=== PATIENT | male | born 1950 | race Caucasian/White ===

== ENCOUNTER 2022-06-29 09:26 | Outpatient (CLI) | payer OTHER, SELFPAY | END 2022-06-29 09:27 | disposition home or self-care (01) | LOC: NFLDREF 07-01 07:38 | PROVIDERS: Visit Provider Emergency Medicine | DX: R73.03 Prediabetes (principal); I10 Essential (primary) hypertension; E78.5 Hyperlipidemia, unspecified; Z12.5 Encounter for screening for malignant neoplasm of prostate | CPT/HCPCS: 80053; 80061; 84153 ==

== ENCOUNTER 2023-08-26 10:11 | Outpatient (CLI) | payer OTHER, SELFPAY | END 2023-08-26 10:12 | disposition home or self-care (01) | LOC: NFLDREF 08-30 17:54 | PROVIDERS: PCP Emergency Medicine; Referring Provider Emergency Medicine; Visit Provider Emergency Medicine | DX: I10 Essential (primary) hypertension (principal); E78.5 Hyperlipidemia, unspecified; E11.9 Type 2 diabetes mellitus without complications; Z12.5 Encounter for screening for malignant neoplasm of prostate | CPT/HCPCS: 80053; 80061; 84443; G0103 ==

== ENCOUNTER 2023-08-27 14:59 | Outpatient (CLI) | payer OTHER, SELFPAY | END 2023-08-27 15:00 | disposition home or self-care (01) | LOC: LKVREF 14:59 | PROVIDERS: PCP Emergency Medicine; Visit Provider Emergency Medicine | DX: E11.65 Type 2 diabetes mellitus with hyperglycemia (principal) | CPT/HCPCS: 82043; 82570 ==

== ENCOUNTER 2023-09-06 07:41 | Outpatient (CLI) | payer OTHER, SELFPAY ==
--- NOTE | 2023-09-06 09:00 | CRLHL7_ITS ---
For Patients: As a result of the Cures Act, medical imaging exams and procedure reports are released immediately into your electronic medical record. You may view this report before your referring provider. If you have questions, please contact your health care provider. INDICATION: Smoking history; low-dose screening chest CT. COMPARISON: None. Technique: Low-dose screening chest CT. FINDINGS: Coronary artery calcifications. Calcifications identified in the aortic valve. No abnormal mediastinal or hilar lymphadenopathy. Normal size cardiac silhouette without any pericardial effusion. A tiny calcified granuloma right lower lobe. No abnormal intra pulmonary nodular densities are identified. Limited CT through the upper abdomen is unremarkable. IMPRESSION: 1. Coronary artery calcifications. 2. Lung rads category 1; low-dose screening chest CT in 12 months suggested. Please note that all CT scans at this facility use dose modulation, iterative reconstruction, and/or weight-based dosing when appropriate to reduce radiation dose to as low as reasonably achievable. Dictated by Abraham Byers MD @ 09/06/2023 1:22:44 PM (Electronically Signed)
== END 2023-09-06 07:42 | disposition home or self-care (01) ==
LOC: RAD 07:41
PROVIDERS: PCP Emergency Medicine; Visit Provider Emergency Medicine
DX: Z12.2 Encounter for screening for malignant neoplasm of respiratory organs (principal); I25.10 Atherosclerotic heart disease of native coronary artery without angina pectoris; F17.210 Nicotine dependence, cigarettes, uncomplicated; I35.0 Nonrheumatic aortic (valve) stenosis
CPT/HCPCS: 71271; 93306

== ENCOUNTER 2023-11-28 08:51 | Outpatient (CLI) | payer OTHER, SELFPAY | END 2023-11-28 08:52 | disposition home or self-care (01) | LOC: LKVREF 08:52 | PROVIDERS: PCP Emergency Medicine; Visit Provider Emergency Medicine | DX: E78.2 Mixed hyperlipidemia (principal) | CPT/HCPCS: 80061 ==

== ENCOUNTER 2024-02-04 08:06 | Outpatient (CLI) | payer OTHER, SELFPAY | END 2024-02-04 08:07 | disposition home or self-care (01) | LOC: LKVREF 08:06 | PROVIDERS: PCP Emergency Medicine; Visit Provider Emergency Medicine | DX: I10 Essential (primary) hypertension (principal) | CPT/HCPCS: 80048 ==

== ENCOUNTER 2024-11-23 10:25 | Outpatient (CLI) | payer OTHER, SELFPAY | END 2024-11-23 10:26 | disposition home or self-care (01) | LOC: LKVREF 10:26 | PROVIDERS: PCP Physician Assistant Medical; Visit Provider Physician Assistant Medical | DX: E11.29 Type 2 diabetes mellitus with other diabetic kidney complication (principal); R80.9 Proteinuria, unspecified; R35.0 Frequency of micturition | CPT/HCPCS: 82043; 82570 ==